=== PATIENT | female | born 2000 | race African-American/Black ===

== ENCOUNTER 2024-02-01 09:34 | Outpatient (AMB) | payer BC, MEDICAID, SELFPAY ==
--- NOTE | 2024-02-01 09:47 | A.OFFPC_ITS ---
Vital Signs 02/01/24 09:56 Height 5 ft 6 in Weight 232 lb 6 oz BMI 37.5 BP 104/70 Blood Pressure Location Lt brachial Position Sitting Respiration 12 Pulse 110 H Pulse Source Pulse Oximeter Temp 98.8 F Temp Source Oral Pulse Oximetry (%) 99 Oxygen Delivery Method Room Air Intake Visit Reasons: [employer]/Recurrent UTI Intake Note: New patient visit. no urinary sxs today Allergies No Known Allergies Allergy (Verified 02/01/24 09:53) Medication List - Last Reconciled 02/01/24 by Bessie Coffman MD fluconazole 150 mg PO Q3D PRN 90 days sulfamethoxazole-trimethoprim 800-160 mg 1 tab PO BID PRN 5 days trimethoprim 100 mg PO DAILY 90 days Tobacco use date assessed: 02/01/24 Dental Screening Dental Screen Date: 02/01/24 Did you have a dental visit in the last 12 months?: Yes Did you have a dental problem in the last 6 months where you did not have access to dental care?: No Was dental information given to patient?: Patient has dentist HPI HPI Comments History of Present Illness Details 23 year old female with past medical his tory of recurrent UTI, rec urrent yeast infections presenting to [facility] care Has UTI symptoms at presenting. Will need yeast treatment. [facility] Social History (Updated 02/01/24 @ 10:17 by Pebbles Grullon CMA) Housing: Apartment Patient Tobacco Use Status: Never used Tobacco e-Cigarette/Vaping Use: Never Used Second Hand Smoke Exposure: No service: No Current occupational status: employed Current occupation: [employer] Current occupational exposures/hazards: No Cognitive needs: No Hearing needs: No Vision needs: Yes (glasses) Questionnaire PHQ-9 Over the last 2 weeks, how often have you been bothered by any of the following problems? 1. Little interest or pleasure in doing things: not at all 2. Feeling down, depressed, or hopeless: not at all 3. Trouble falling or staying asleep, or sleeping too much: not at all 4. Feeling tired or having little energy: not at all 5. Poor appetite or overeating: not at all 6. Feeling bad about yourself - or that you are a failure or have let yourself or your family down: not at all 7. Trouble concentrating on things, such as reading the newspaper or watching television: not at all 8. Moving or speaking so slowly that other people could have noticed. Or the opposite - being so fidgety or restless that you have been moving around a lot more than usual: not at all 9. Thoughts that you would be better off or of hurting yourself in some way: not at all Total score: 0 Depression Screening Interpretation: Negative (neg) Depression Screening Done: Yes 53525 - PHQ-9 Billing: Yes Source: Developed by Drs. Angel Joseph, Skylar Mathis, Pipe Munson and colleagues, with an educational casey from [employer]. Thrive Questionnaire Date Thrive assessed: 02/01/24 I am a: Patient What is your living situation today?: I have a steady place to live Within the past 12 months, did the food you bought not last and you didn't have the money to get more?: Never true Within the past 12 months, did you worry whether your food would run out before you got money to buy more?: Never true Do you have trouble paying for medicines?: No Do you have trouble getting transportation to medical appointments?: No Do you have trouble paying your heating and electricity bill?: No Do you have trouble taking care of your child, family member or friend?: No Do you have trouble with day-to-day activities such as bathing, preparing meals, shopping, managing finances, etc.?: No Are you currently unemployed and looking for a job?: No Are you interested in more education?: No Please select the resources that you would like help with: None Currently or been in a relationship where the following occur: no concerns reported THRIVE Score: 0 AUDIT C Alcohol Use Questionnaire (AUDIT-C) 1. How often do you have a drink containing alcohol?: Monthly or less 2. How many drinks containing alcohol do you have on a typical day when you are drinking?: 1 or 2 3. How often do you have six or more drinks on one occasion?: Never Total Score: 1 MARIBEL-7 AMB Questionnaire MARIBEL-7 Date MARIBEL - 7 assessed: 02/01/24 Feeling nervous, anxious, or on edge: 0 = Not at all Not being able to stop or control worryin = Not at all Worrying too much about different things: 0 = Not at all Trouble relaxin = Several days Being so restless that it is hard to sit still: 0 = Not at all Becoming easily annoyed or irritable: 0 = Not at all Feeling afraid as if something awful might happen: 0 = Not at all Total MARIBEL-7 score (0-4 normal; 5-9 mild; 10-14 moderate; 15-21 severe): 1 Source: Developed by Drs. Angel Joseph, Skylar Mathis, Pipe Munson and colleagues, with an educational casey from [employer]. MARIBEL-7 Assessment Billing MARIBEL-7 Assessment Tool: MARIBEL-7 Assessment 88461 Review of Systems Const Details: ROS CONSTITUTIONAL: Denies weight loss, fever and chills. HEENT: Denies changes in vision and hearing. RESPIRATORY: Denies SOB and cough. CV: Denies palpitations and CP GI: Denies abdominal pain, nausea, vomiting and diarrhea. : Denies dysuria and urinary frequency. MSK: Denies new myalgia and joint pain. SKIN: Denies rash and pruritus. NEUROLOGICAL: Denies headache PSYCHIATRIC: Denies recent changes in mood. Physical exam (Primary Care) Vital Signs: Last Vital Signs Temp 98.8 F 02/01/24 09:56 Pulse 110 H 02/01/24 09:56 Resp 12 02/01/24 09:56 BP 104/70 02/01/24 09:56 Pulse Ox 99 02/01/24 09:56 Oxygen Delivery Method Room Air 02/01/24 09:56 PHYSICAL EXAM: GENERAL: Alert and oriented x 3. NAD EYES: EOMI. Anicteric. HENT: Moist mucous membranes. No scleral icterus. No cervical lymphadenopathy. LUNGS: Clear to auscultation bilaterally. CARDIOVASCULAR: Regular rate and rhythm. No murmur. No JVD. ABDOMEN: Soft, non-tender +bs EXTREMITIES: No edema. Non-tender. SKIN: No rashes or lesions. Warm. NEUROLOGIC: No focal neurological deficits. CN II-XII grossly intact PSYCHIATRIC: Cooperative. Appropriate mood and affect BMI result Body Mass Index 37.5 Tobacco/Smoking Status: Tobacco use Status Tobacco use date assessed 02/01/24 02/01/24 09:57 Patient Tobacco Use Status Never used Tobacco 02/01/24 10:17 e-Cigarette/Vaping Use Never Used 02/01/24 10:17 PHQ-9: PHQ-9 Score PHQ-9: Total score 0 02/01/24 10:40 Depression Screening Interpretation: Negative (neg) Thrive Assessment: Date of Thrive Assessment Date Thrive assessed 02/01/24 02/01/24 10:18 Currently or been in a relationship where the following occur: no concerns reported Assessment and Plan Assessment & Plan (1) Recurrent UTI: Comment: low dose prophylaxis daily Code(s): N39.0 - Urinary tract infection, site not specified (2) Sickle cell trait: Comment: monitor labs Code(s): D57.3 - Sickle-cell trait Medications: New sulfamethoxazole-trimethoprim 800-160 mg 1 tab PO BID PRN 30 tabs 1RF UTI 5 days trimethoprim 100 mg PO DAILY 90 tabs 3RF 90 days fluconazole 150 mg PO Q3D PRN 6 tabs 3RF yeast infection 90 days Coding Level of Care Code Tele New Pt Level 3 (63028) Complex EM visit Add On G2211 Diagnoses Recurrent UTI N39.0 Sickle cell trait D57.3 Additional Codes MARIBEL-7 Assessment Billing - MARIBEL-7 Assessment Tool: MARIBEL-7 Assessment 48671 ([id number])
[2024-02-01 09:56] VITALS: BP 104/70; PULSE 110; RESP 12; TEMP 37.1; O2SAT 99; BMI 37.5
== END 2024-02-01 10:37 | disposition home or self-care (01) ==
PROVIDERS: Visit Provider Internal Medicine
DX: N39.0 Urinary tract infection, site not specified (principal); D57.3 Sickle-cell trait
CPT/HCPCS: 99203